=== PATIENT | female | born 1995 | race Caucasian/White ===

== ENCOUNTER 2023-02-05 20:29 | Emergency (ER) | payer OTHER ==
[2023-02-05] MEDS ORDERED: Sodium Chloride 0.9% 1000 ML 1,000 ML IV STA (20:40)
[2023-02-05] MEDS ORDERED: PROTONIX 40 MG IV IV ONE ×2 (20:40→21:34)
[2023-02-05] MEDS ORDERED: Zofran 4 MG/2 ML VIAL IV ONE (20:40)
[2023-02-05] MEDS ORDERED: SUBLIMAZE 100 MCG/2 ML IV ONE (20:49)
[2023-02-05 21:04] LABS: BASOPHIL % 0.4 % (0.0-0.4); Basophil (Absolute #) 0.04 x10^3/uL (0-0.4); Eosinophil % 1.1 % (0.00-5.0); Eosinophil (Absolute #) 0.11 x10^3/uL (0-0.5); Hematocrit 40.4 % (35-47); Hemoglobin 13.2 g/dL (12.0-16.0); IMMATURE GRAN # 0.03 x10^3u/L (0.00-0.03); IMMATURE GRAN % 0.3 % (0.00-0.4); Lymphocyte (Absolute #) 2.99 x10^3/uL (1.0-4.6); Mean Cell Volume 87.3 fL (78-100); Mean Corpuscular Hemoglobin 28.5 pg (26-32); Mean Corpuscular Hgb Concent. 32.7 g/dL (32-36); Mean Platelet Volume 8.7 fL (7.5-11.0); Monocyte (Absolute #) 0.69 x10^3/uL (0.0-1.3); Monocytes % 6.9 % (0.0-12.0); Neutrophil % 61.3 % (36.0-66.0); Platelet Count 346 x10^3/uL (150-450); Red Blood Count 4.63 x10^6/uL (4.1-5.4); Red Cell Distribution Width 11.9 % (11.5-14.0)
[2023-02-05 21:06] VITALS: RESP 18; TEMP 98.2
[2023-02-05 21:16] LABS: ALBUMIN 4.5 g/dL (3.5-5.0); ANION GAP 16.7 MEQ/L (5-15); BILIRUBIN,TOTAL 0.5 mg/dL (0.2-1.3); Calcium 9.8 mg/dL (8.4-10.2); Creatinine 1 0.81 mg/dL (0.52-1.04); PROTIME 10.9 SECONDS (9.4-12.5); Potassium 3.8 mmol/L (3.5-5.1); Total Protein 8.3 g/dL (6.3-8.2)
[2023-02-05] MEDS ORDERED: Sodium Chloride 0.9% 1000 ML 1,000 ML ONE (21:34)
[2023-02-05] MEDS ORDERED: Zofran 4 MG/2 ML VIAL ONE (21:34)
[2023-02-05] MEDS ORDERED: SUBLIMAZE 100 MCG/2 ML ONE (21:34)
--- NOTE | 2023-02-05 21:49 | ERPHSYRPT ---
- History of Present Illness Time Seen by Provider: 02/05/23 20:35 Historian: patient, family Exam Limitations: no limitations Patient Subjective Stated Complaint: pt states she has been having stomach pain since the middle of January. Triage Nursing Assessment: pt ambulated into the er; pt is holding left upper abdomen; c/o abd pain; hypoactive bowel sounds in all quads; c/o N/V; pt denies diarrhea; mucus membranes pink and moist; tachycardic; skin PDW; no respiratory distress present Physician History: Patient is a 27-year-old white female who presents with a complaint of abdominal pain which started approximately a month ago. Over the past week she has been especially ill with pain she cannot eat without vomiting and she has left upper quadrant pain. 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 She states that her fallopian tubes were removed. Timing/Duration: week(s) (4) Activities at Onset: none Quality: cramping Abdominal Pain Onset Location: [facility] Pain Radiation: [facility] Severity of Pain-Max: moderate Severity of Pain-Current: moderate Modifying Factors: Improves With: eating, vomiting Allergies/Adverse Reactions: hydrocodone Adverse Reaction (Verified 02/05/23 20:44) Headache lorazepam [From Ativan] Adverse Reaction (Verified 02/05/23 22:01) nightmares Home Medications: Buspirone HCl 15 mg PO TID 02/05/23 [History] Fluoxetine HCl 10 mg [Prozac 10 mg] 20 mg PO DAILY 02/05/23 [History] lamoTRIgine [Lamotrigine] 350 mg PO HS 02/05/23 [History] Hx Tetanus, Diphtheria Vaccination/Date Given: Yes Hx Influenza Vaccination/Date Given: No Hx Pneumococcal Vaccination/Date Given: No Travel Risk - International Travel Have you traveled outside of the country in past 3 weeks: No - Coronavirus Screening Are you exhibiting any of the following symptoms?: No Close contact with a COVID-19 positive Pt in past 14-21 Days: No - Vaccine Status Have you recieved a Covid-19 vaccination: Yes Dater Assembler: Moderna - Vaccination Dates Date of 2cond Vaccination (if applicable): 2020 - Review of Systems Constitutional: No Fever, No Chills Eyes: No Symptoms Ears, Nose, & Throat: No Symptoms Respiratory: No Cough, No Dyspnea Cardiac: No Chest Pain, No Edema, No Syncope Abdominal/Gastrointestinal: Abdominal Pain (Left upper quadrant), Nausea, Vomiting, Constipation, No Diarrhea Genitourinary Symptoms: No Dysuria Musculoskeletal: No Back Pain, No Neck Pain Skin: No Rash Neurological: No Dizziness, No Focal Weakness, No Sensory Changes Psychological: No Symptoms Endocrine: No Symptoms All Other Systems: Reviewed and Negative - Past Medical History Pertinent Past Medical History: Yes Neurological History: Seizures ENT History: No Pertinent History Cardiac History: No Pertinent History Respiratory History: No Pertinent History Endocrine Medical History: No Pertinent History Musculoskeletal History: No Pertinent History GI Medical History: No Pertinent History History: No Pertinent History Psycho-Social History: Anxiety, Attention Deficit Disorder, Bipolar, Depression Female Reproductive Disorders: No Pertinent History - Past Surgical History Past Surgical History: Yes Female Surgical History: Other Other Surgical History: removal of both tubes - Social History Smoking Status: Never smoker Exposure to second hand smoke: Yes Drug Use: marijuana Patient Lives Alone: No - Female History Hx Now: No - Nursing Vital Signs Nursing Vital Signs: Initial Vital Signs Temperature 98.2 F 02/05/23 20:30 Pulse Rate 127 H 02/05/23 20:30 Respiratory Rate 18 02/05/23 20:30 Blood Pressure 147/86 02/05/23 20:30 O2 Sat by Pulse Oximetry 97 02/05/23 20:30 Pain Scale Pain Intensity 5 - Physical Exam General Appearance: mild distress, alert Eye Exam: PERRL/EOMI, eyes nml inspection Ears, Nose, Throat Exam: normal ENT inspection, pharynx normal, moist mucous membranes Neck Exam: normal inspection, non-tender, supple, full range of motion Respiratory Exam: normal breath sounds, lungs clear, No respiratory distress Cardiovascular Exam: regular rate/rhythm, normal heart sounds Gastrointestinal/Abdomen Exam: soft, No tenderness, No mass Back Exam: normal inspection, normal range of motion, No CVA tenderness, No vertebral tenderness Extremity Exam: normal inspection, normal range of motion, pelvis stable Neurologic Exam: alert, oriented x 3, cooperative, normal mood/affect, nml cerebellar function, sensation nml, No motor deficits Skin Exam: normal color, warm, dry SpO2 Interpretation: normal SpO2: 97 O2 Delivery: Room Air - Course Nursing assessment & vital signs reviewed: Yes - CT Exams Abdomen/Pelvis CT Interpretation: Tele-radiologist Report Ordered Tests: Active Orders 24 hr Category Date Time Status IV Insertion STAT Care 02/05/23 20:40 Active ABDOMEN AND PELVIS W CONTRAST [CT] Stat Exams 02/05/23 20:41 Completed CHEST 1 VIEW (PORTABLE) Stat Exams 02/05/23 20:41 Completed AMYLASE Stat Lab 02/05/23 20:40 Completed CBC W DIFF Stat Lab 02/05/23 21:00 Completed CMP Stat Lab 02/05/23 20:40 Completed LIPASE Stat Lab 02/05/23 20:40 Completed Lactic Acid Stat Lab 02/05/23 20:57 Completed PROTIME WITH INR Stat Lab 02/05/23 20:40 Completed Medication Summary Discontinued Medications Generic Name Dose Route Start Last Admin Trade Name Freq PRN Reason Stop Dose Admin Diazepam Confirm 02/05/23 22:00 Diazepam 10 Mg/2 Ml Disp.Syringe Administered 02/05/23 22:01 Dose 10 mg .ROUTE .STK-MED ONE Diazepam 5 mg 02/05/23 22:03 02/05/23 22:07 Diazepam 10 Mg/2 Ml Disp.Syringe IV 02/05/23 22:04 5 mg STAT ONE Administration Fentanyl Citrate 75 mcg 02/05/23 20:49 02/05/23 21:41 Fentanyl Citrate 100 Mcg/2 Ml* Vial IV 02/05/23 20:50 75 mcg STAT ONE Administration Fentanyl Citrate Confirm 02/05/23 21:34 Fentanyl Citrate 100 Mcg/2 Ml* Vial Administered 02/05/23 21:35 Dose 100 mcg .ROUTE .STK-MED ONE Sodium Chloride 1,000 mls @ 999 mls/hr 02/05/23 20:40 02/05/23 21:37 Sodium Chloride 0.9% 1000 Ml IV 02/05/23 21:40 999 mls/hr .Q1H1M STA Administration Sodium Chloride Confirm 02/05/23 21:34 Sodium Chloride 0.9% 1000 Ml Administered 02/05/23 21:35 Dose 1,000 mls @ ud .ROUTE .STK-MED ONE Lorazepam Confirm 02/05/23 21:52 Lorazepam 2 Mg/1 Ml 2 Mg Vial Administered 02/05/23 21:53 Dose 2 mg .ROUTE .STK-MED ONE Ondansetron HCl 4 mg 02/05/23 20:40 02/05/23 21:38 Ondansetron Hcl 4 Mg/2 Ml Vial IV 02/05/23 20:41 4 mg STAT ONE Administration Ondansetron HCl Confirm 02/05/23 21:34 Ondansetron Hcl 4 Mg/2 Ml Vial Administered 02/05/23 21:35 Dose 4 mg .ROUTE .STK-MED ONE Pantoprazole Sodium 40 mg 02/05/23 20:40 02/05/23 21:40 Pantoprazole 40 Mg Vial IV 02/05/23 20:41 40 mg STAT ONE Administration Pantoprazole Sodium Confirm 02/05/23 21:34 Pantoprazole 40 Mg Vial Administered 02/05/23 21:35 Dose 40 mg IV .STK-MED ONE Lab/Rad Data: Laboratory Result Diagrams 02/05/23 21:00 02/05/23 20:40 Laboratory Results 02/05/23 02/05/23 02/05/23 Range/Units 21:00 20:57 20:40 WBC 10.0 (4.0-10.5) x10^3/uL RBC 4.63 (4.1-5.4) x10^6/uL Hgb 13.2 (12.0-16.0) g/dL Hct 40.4 (35-47) % MCV 87.3 (78-100) fL MCH 28.5 (26-32) pg MCHC 32.7 (32-36) g/dL RDW 11.9 (11.5-14.0) % Plt Count 346 (150-450) x10^3/uL MPV 8.7 (7.5-11.0) fL Gran % 61.3 (36.0-66.0) % Immature Gran % (Auto) 0.3 (0.00-0.4) % Nucleat RBC Rel Count 0.0 (0.00-0.1) % Eos # (Auto) 0.11 (0-0.5) x10^3/uL Immature Gran # (Auto) 0.03 (0.00-0.03) x10^3u/L Absolute Lymphs (auto) 2.99 (1.0-4.6) x10^3/uL Absolute Monos (auto) 0.69 (0.0-1.3) x10^3/uL Absolute Nucleated RBC 0.00 (0.00-0.01) x10^3u/L Lymphocytes % 30.0 (24.0-44.0) % Monocytes % 6.9 (0.0-12.0) % Eosinophils % 1.1 (0.00-5.0) % Basophils % 0.4 (0.0-0.4) % Absolute Granulocytes 6.10 (1.4-6.9) x10^3/uL Basophils # 0.04 (0-0.4) x10^3/uL PT 10.9 (9.4-12.5) SECONDS INR 1.00 (0.8-3.0) Sodium (137-145) mmol/L Potassium (3.5-5.1) mmol/L Chloride (98-107) mmol/L Carbon Dioxide (22-30) mmol/L Anion Gap (5-15) MEQ/L BUN (7-17) mg/dL Creatinine (0.52-1.04) mg/dL Estimated GFR ML/MIN Glucose (74-106) mg/dL Lactic Acid 1.5 (0.4-2.0) Calcium (8.4-10.2) mg/dL Total Bilirubin (0.2-1.3) mg/dL AST (14-36) U/L ALT (0-35) U/L Alkaline Phosphatase (38-126) U/L Serum Total Protein (6.3-8.2) g/dL Albumin (3.5-5.0) g/dL Amylase (30-110) U/L Lipase (23-300) U/L 02/05/23 Range/Units 20:40 WBC (4.0-10.5) x10^3/uL RBC (4.1-5.4) x10^6/uL Hgb (12.0-16.0) g/dL Hct (35-47) % MCV (78-100) fL MCH (26-32) pg MCHC (32-36) g/dL RDW (11.5-14.0) % Plt Count (150-450) x10^3/uL MPV (7.5-11.0) fL Gran % (36.0-66.0) % Immature Gran % (Auto) (0.00-0.4) % Nucleat RBC Rel Count (0.00-0.1) % Eos # (Auto) (0-0.5) x10^3/uL Immature Gran # (Auto) (0.00-0.03) x10^3u/L Absolute Lymphs (auto) (1.0-4.6) x10^3/uL Absolute Monos (auto) (0.0-1.3) x10^3/uL Absolute Nucleated RBC (0.00-0.01) x10^3u/L Lymphocytes % (24.0-44.0) % Monocytes % (0.0-12.0) % Eosinophils % (0.00-5.0) % Basophils % (0.0-0.4) % Absolute Granulocytes (1.4-6.9) x10^3/uL Basophils # (0-0.4) x10^3/uL PT (9.4-12.5) SECONDS INR (0.8-3.0) Sodium 137 (137-145) mmol/L Potassium 3.8 (3.5-5.1) mmol/L Chloride 102 (98-107) mmol/L Carbon Dioxide 22 (22-30) mmol/L Anion Gap 16.7 H (5-15) MEQ/L BUN 8 (7-17) mg/dL Creatinine 0.81 (0.52-1.04) mg/dL Estimated GFR 102.0 ML/MIN Glucose 118 H (74-106) mg/dL Lactic Acid (0.4-2.0) Calcium 9.8 (8.4-10.2) mg/dL Total Bilirubin 0.50 (0.2-1.3) mg/dL AST 30 (14-36) U/L ALT 20 (0-35) U/L Alkaline Phosphatase 95 (38-126) U/L Serum Total Protein 8.3 H (6.3-8.2) g/dL Albumin 4.5 (3.5-5.0) g/dL Amylase 79 (30-110) U/L Lipase 41 (23-300) U/L - Progress Progress: improved Medical Desision Making - Independent Historian Additional History obtained from: Family - Diagnostic Testing Diagnostic test were ordered, analyzed, and reviewed by me: Yes Radiological Interpretation: Reviewed by me - Risk of complications Minimal Risk: Minimal risk of morbidity - Departure Departure Disposition: Home Clinical Impression: Abdominal pain Condition: Stable Critical Care Time: No Referrals: DOCTOR,NO FAMILY [Primary Care Provider] - Follow up/PCP as directed Instructions: Irritable Bowel Syndrome (DC) Prescriptions: Ondansetron ODT 4 MG [Zofran Odt 4 mg] 4 mg PO Q6H PRN PRN #10 tablet PRN Reason: Vomiting Dicyclomine HCl 20 mg [Bentyl 20 mg] 20 mg PO ACHS 10 Days #40 tablet
[2023-02-05] MEDS ORDERED: Ativan 2 MG/1 ML VIAL ONE (21:52)
[2023-02-05] MEDS ORDERED: VALIUM 10 MG/2 ML SYRINGE ONE (22:00)
[2023-02-05] MEDS ORDERED: VALIUM 10 MG/2 ML SYRINGE IV ONE (22:03)
--- NOTE | 2023-02-05 22:03 | XRAY ---
CLINICAL HISTORY:pain COMPARISON:None. TECHNIQUE:A CT scan of the abdomen and pelvis was performed with IV contrast. Coronal and sagittal reconstructive images were also obtained. FINDINGS: Sections of the lower thorax show no significant abnormality. Abdomen: The liver is of average size. No focal or diffuse parenchymal abnormality. The portal vein, intrahepatic biliary radicals, and the bile ducts are normal. The spleen shows multiple tiny calcific foci in its parenchyma. The pancreas and adrenal glands are unremarkable. The kidneys are unremarkable. They are normal in size and shape. No calculi or hydronephrosis. The gallbladder is distended. There is no evidence of wall thickening/ pericholecystic collection. The ascending colon, the transverse colon, the descending colon, visualized small bowel loops are unremarkable. The appendix appears normal. There is no evidence of significant enlargement of the mesenteric or retroperitoneal lymph nodes. Pelvis: The urinary bladder is unremarkable. The rectosigmoid colon is unremarkable. The uterus appears unremarkable. Corpus luteal cyst seen on the right side. Minimal free fluid seen in the pelvis. No evidence of pelvic lymphadenopathy. No definite bony abnormalities could be depicted. IMPRESSION: 1. No significant acute abnormality was detected in the abdomen and pelvis. 2. Minimal free fluid in the pelvis. 3. Na acute intraabdominal abnormality. Electronically Signed by: Sheryl Mena MD. (02/05/2023 21:01:33 CASH ON DELIVERY CLERK)
--- NOTE | 2023-02-05 22:13 | XRAY ---
Indication: Pain. Comparison: None Portable chest demonstrates button overlying trachea presumed external. Remaining heart, lungs, and bony thorax normal.
[2023-02-05] MEDS ORDERED: ZOFRAN ODT 4 MG PO ONE (22:37)
[2023-02-05] MEDS ORDERED: BENTYL 20 MG PO STA (22:38)
[2023-02-05] MEDS ORDERED: ZOFRAN ODT 4 MG ONE (22:45)
[2023-02-05] MEDS ORDERED: BENTYL 20 MG ONE (22:46)
[2023-02-05 22:57] VITALS: BP 109/70; PULSE 71; O2SAT 99
== END 2023-02-05 23:03 | disposition home or self-care (01) ==
LOC: ED 20:29
DX: R10.12 Left upper quadrant pain (principal); R11.10 Vomiting, unspecified; Z79.899 Other long term (current) drug therapy
CPT/HCPCS: 36000; 36415; 71045; 74177; 80053; 82150; 83605; 83690; 85025; 85610; 96360; 96374; 96375; 99284; J2060; J2405; J3010; J3360; Q0162; A9270-GY

== ENCOUNTER 2023-05-24 14:21 | Emergency (ER) | payer OTHER ==
--- NOTE | 2023-05-24 14:26 | ERPHSYRPT ---
- History of Present Illness Time Seen by Provider: 05/24/23 14:26 Source: patient, family Exam Limitations: no limitations Physician History: This is a 27-year-old white female patient who wants to be referred to as "they", "him" or the name Ilia and is a patient of Dr. Grant who presents to the emergency room secondary to suicidal thoughts. Patient admits to having suicidal thoughts constantly. It has been several years since she attempted suicide. Patient was seen at her primary care provider's office earlier today for abdominal issues and filled out their typical admit questionnaire. There were several positive suicidal ideation portions marked. Patient was sent to [facility]. The physician was unable to evaluate this patient and therefore they told the patient to come to the emergency department. Patient has a plan and that is to take an overdose of sleeping pills. Patient does have a history of depression. Timing/Duration: today Severity of Symptoms-Max: moderate Severity of Symptoms-Current: mild (Moderate) Context related to: other (Nothing specific. Patient always feels this way) Suicidal thoughts: specific plan (Overdose of sleeping pills) Associated Symptoms: depressed, suicidal ideation Previous symptoms: same symptoms as today, no recent treatment Allergies/Adverse Reactions: hydrocodone Adverse Reaction (Verified 05/24/23 14:35) Headache lorazepam [From Ativan] Adverse Reaction (Verified 05/24/23 14:35) nightmares Home Medications: Buspirone HCl 15 mg PO TID 02/05/23 [History] Fluoxetine HCl 10 mg [Prozac 10 mg] 40 mg PO DAILY 02/05/23 [History] lamoTRIgine [Lamotrigine] 350 mg PO HS 02/05/23 [History] Dicyclomine HCl 20 mg [Bentyl 20 mg] 20 mg PO ACHS PRN 05/24/23 [History] Hx Tetanus, Diphtheria Vaccination/Date Given: Yes Hx Influenza Vaccination/Date Given: No Hx Pneumococcal Vaccination/Date Given: No Travel Risk - International Travel Have you traveled outside of the country in past 3 weeks: No - Coronavirus Screening Are you exhibiting any of the following symptoms?: No - Vaccine Status Have you recieved a Covid-19 vaccination: Yes Audio Director: Moderna - Vaccination Dates Date of 2cond Vaccination (if applicable): 2020 - Past Medical History Pertinent Past Medical History: Yes Neurological History: Seizures ENT History: No Pertinent History Cardiac History: No Pertinent History Respiratory History: No Pertinent History Endocrine Medical History: No Pertinent History Musculoskeletal History: No Pertinent History GI Medical History: No Pertinent History History: No Pertinent History Psycho-Social History: Anxiety, Attention Deficit Disorder, Bipolar, Depression Female Reproductive Disorders: No Pertinent History - Past Surgical History Past Surgical History: Yes Female Surgical History: Other Other Surgical History: removal of both tubes - Social History Smoking Status: Never smoker Exposure to second hand smoke: Yes Drug Use: marijuana Patient Lives Alone: No - Review of Systems Constitutional: No Symptoms Eyes: No Symptoms Ears, Nose, & Throat: No Symptoms Respiratory: No Symptoms Cardiac: No Symptoms Abdominal/Gastrointestinal: No Symptoms Genitourinary Symptoms: No Symptoms Musculoskeletal: No Symptoms Skin: No Symptoms Neurological: No Symptoms Psychological: Suicidal Ideations Endocrine: No Symptoms Hematologic/Lymphatic: No Symptoms Immunological/Allergic: No Symptoms All Other Systems: Reviewed and Negative - Nursing Vital Signs Nursing Vital Signs: Initial Vital Signs Temperature 96.8 F 05/24/23 14:47 Pulse Rate 81 05/24/23 14:47 Respiratory Rate 18 05/24/23 14:47 Blood Pressure 110/76 05/24/23 14:47 O2 Sat by Pulse Oximetry 97 05/24/23 14:47 Pain Scale Pain Intensity 0 - Physical Exam General Appearance: no apparent distress, alert, other (Depressed affect) Eyes, Ears, Nose, Throat Exam: normal ENT inspection, moist mucous membranes Neck Exam: normal inspection, non-tender, supple, full range of motion Respiratory Exam: normal breath sounds, lungs clear, airway intact, No chest tenderness, No respiratory distress Cardiovascular Exam: regular rate/rhythm, normal heart sounds, normal peripheral pulses Gastrointestinal/Abdominal Exam: soft, normal bowel sounds, No tenderness Extremities Exam: normal inspection, normal range of motion Current Suicidality: has suicide plan Neurological Exam: alert, calm, icebox man II-XII nml as tested, oriented x 3, depressed affect Appearance: appropriate appearance, appropriate insight Behavior/Eye Contact/Speech: alert & cooperative Thoughts/Hallucinations: normal thought pattern, no apparent hallucination Skin Exam: normal color, warm, dry SpO2 Interpretation: normal O2 Delivery: Room Air - Course Nursing assessment & vital signs reviewed: Yes EKG Interpreted by Me: RATE, Sinus Rhythm, NORMAL AXIS, NORMAL INTERVALS, NORMAL QRS, NORMAL ST-T, Other (No acute ischemic changes on today's twelve-lead EKG. I disagree with the computer read) Ordered Tests: Active Orders 24 hr Category Date Time Status Customer Equipment Engineer STAT Care 05/24/23 14:26 Active EKG-ER Only STAT Care 05/24/23 14:26 Active Tele-Health Consult ROUTINE Cons 05/24/23 18:33 Active ACETAMINOPHEN Stat Lab 05/24/23 14:40 Completed CBC W DIFF Stat Lab 05/24/23 14:40 Completed CMP Stat Lab 05/24/23 14:40 Completed ETHYL ALCOHOL Stat Lab 05/24/23 14:40 Completed HCG QUALITATIVE, SERUM Stat Lab 05/24/23 14:40 Completed SALICYLATE Stat Lab 05/24/23 14:40 Completed UA W/RFX UR CULTURE Stat Lab 05/24/23 15:33 Completed Urine Triage Profile Stat Lab 05/24/23 15:33 Completed Lab/Rad Data: Laboratory Result Diagrams 05/24/23 14:40 05/24/23 14:40 Laboratory Results 05/24/23 05/24/23 05/24/23 Range/Units 15:33 15:33 14:40 WBC (4.0-10.5) x10^3/uL RBC (4.1-5.4) x10^6/uL Hgb (12.0-16.0) g/dL Hct (35-47) % MCV (78-100) fL MCH (26-32) pg MCHC (32-36) g/dL RDW (11.5-14.0) % Plt Count (150-450) x10^3/uL MPV (7.5-11.0) fL Gran % (36.0-66.0) % Immature Gran % (Auto) (0.00-0.4) % Nucleat RBC Rel Count (0.00-0.1) % Eos # (Auto) (0-0.5) x10^3/uL Immature Gran # (Auto) (0.00-0.03) x10^3u/L Absolute Lymphs (auto) (1.0-4.6) x10^3/uL Absolute Monos (auto) (0.0-1.3) x10^3/uL Absolute Nucleated RBC (0.00-0.01) x10^3u/L Lymphocytes % (24.0-44.0) % Monocytes % (0.0-12.0) % Eosinophils % (0.00-5.0) % Basophils % (0.0-0.4) % Absolute Granulocytes (1.4-6.9) x10^3/uL Basophils # (0-0.4) x10^3/uL Sodium (137-145) mmol/L Potassium (3.5-5.1) mmol/L Chloride (98-107) mmol/L Carbon Dioxide (22-30) mmol/L Anion Gap (5-15) MEQ/L BUN (7-17) mg/dL Creatinine (0.52-1.04) mg/dL Estimated GFR ML/MIN Glucose (74-106) mg/dL Calcium (8.4-10.2) mg/dL Total Bilirubin (0.2-1.3) mg/dL AST (14-36) U/L ALT (0-35) U/L Alkaline Phosphatase (38-126) U/L Serum Total Protein (6.3-8.2) g/dL Albumin (3.5-5.0) g/dL Serum HCG, Qual NEGATIVE (NEGATIVE) Urine Color Yellow (Yellow) Urine Appearance Clear (Clear) Urine pH 8.5 A (4.6-8.0) Ur Specific [place] 1.010 (1.005-1.030) Urine Protein Negative (Negative) Urine Glucose (UA) Negative (Negative) mg/dL Urine Ketones Negative (Negative) Urine Blood Negative (Negative) Urine Nitrite Negative (Negative) Urine Bilirubin Negative (Negative) Urine Urobilinogen 0.2 (0.2) mg/dL Ur Leukocyte Esterase Negative (Negative) U Hyaline Cast (Auto) NONE SEEN (0-2) /LPF Urine Microscopic RBC 0-2 (0-5) /HPF Urine Microscopic WBC 0-2 (0-5) /HPF Ur Epithelial Cells Rare (None Seen) /HPF Urine Bacteria None Seen (None Seen) /HPF Urine Culture Reflexed NO (NO) Salicylates (2-20) mg/dL Urine Opiates Level NEGATIVE (NEGATIVE) Ur Methadone NEGATIVE (NEGATIVE) Acetaminophen (10-30) ug/ml Urine Barbiturates NEGATIVE (NEGATIVE) Ur Phencyclidine (PCP) NEGATIVE (NEGATIVE) Urine Amphetamine NEGATIVE (NEGATIVE) U Benzodiazepine Level NEGATIVE (NEGATIVE) Urine Cocaine NEGATIVE (NEGATIVE) Urine Marijuana (THC) POSITIVE A (NEGATIVE) Ethyl Alcohol (0-10) mg/dL 05/24/23 05/24/23 Range/Units 14:40 14:40 WBC 7.7 (4.0-10.5) x10^3/uL RBC 4.55 (4.1-5.4) x10^6/uL Hgb 13.1 (12.0-16.0) g/dL Hct 39.9 (35-47) % MCV 87.7 (78-100) fL MCH 28.8 (26-32) pg MCHC 32.8 (32-36) g/dL RDW 12.4 (11.5-14.0) % Plt Count 317 (150-450) x10^3/uL MPV 8.8 (7.5-11.0) fL Gran % 65.7 (36.0-66.0) % Immature Gran % (Auto) 0.3 (0.00-0.4) % Nucleat RBC Rel Count 0.0 (0.00-0.1) % Eos # (Auto) 0.05 (0-0.5) x10^3/uL Immature Gran # (Auto) 0.02 (0.00-0.03) x10^3u/L Absolute Lymphs (auto) 2.02 (1.0-4.6) x10^3/uL Absolute Monos (auto) 0.50 (0.0-1.3) x10^3/uL Absolute Nucleated RBC 0.00 (0.00-0.01) x10^3u/L Lymphocytes % 26.4 (24.0-44.0) % Monocytes % 6.5 (0.0-12.0) % Eosinophils % 0.7 (0.00-5.0) % Basophils % 0.4 (0.0-0.4) % Absolute Granulocytes 5.04 (1.4-6.9) x10^3/uL Basophils # 0.03 (0-0.4) x10^3/uL Sodium 138 (137-145) mmol/L Potassium 3.7 (3.5-5.1) mmol/L Chloride 104 (98-107) mmol/L Carbon Dioxide 25 (22-30) mmol/L Anion Gap 12.9 (5-15) MEQ/L BUN 6 L (7-17) mg/dL Creatinine 0.70 (0.52-1.04) mg/dL Estimated GFR 121.5 ML/MIN Glucose 96 (74-106) mg/dL Calcium 10.1 (8.4-10.2) mg/dL Total Bilirubin 0.50 (0.2-1.3) mg/dL AST 24 (14-36) U/L ALT 21 (0-35) U/L Alkaline Phosphatase 89 (38-126) U/L Serum Total Protein 8.2 (6.3-8.2) g/dL Albumin 4.7 (3.5-5.0) g/dL Serum HCG, Qual (NEGATIVE) Urine Color (Yellow) Urine Appearance (Clear) Urine pH (4.6-8.0) Ur Specific [place] (1.005-1.030) Urine Protein (Negative) Urine Glucose (UA) (Negative) mg/dL Urine Ketones (Negative) Urine Blood (Negative) Urine Nitrite (Negative) Urine Bilirubin (Negative) Urine Urobilinogen (0.2) mg/dL Ur Leukocyte Esterase (Negative) U Hyaline Cast (Auto) (0-2) /LPF Urine Microscopic RBC (0-5) /HPF Urine Microscopic WBC (0-5) /HPF Ur Epithelial Cells (None Seen) /HPF Urine Bacteria (None Seen) /HPF Urine Culture Reflexed (NO) Salicylates < 1.0 L (2-20) mg/dL Urine Opiates Level (NEGATIVE) Ur Methadone (NEGATIVE) Acetaminophen < 10 L (10-30) ug/ml Urine Barbiturates (NEGATIVE) Ur Phencyclidine (PCP) (NEGATIVE) Urine Amphetamine (NEGATIVE) U Benzodiazepine Level (NEGATIVE) Urine Cocaine (NEGATIVE) Urine Marijuana (THC) (NEGATIVE) Ethyl Alcohol < 10 (0-10) mg/dL - Progress Progress: unchanged Progress Note: 05/24/23 15:47 This patient's medical issue is 1 of high complexity. The level of complexity in the workup performed is based on review of the patient's past medical history, review of the patient's medication list, review of the patient's drug allergy list, history of present illness and physical findings on examination. The workup includes twelve-lead EKG, test, urinalysis, urine drug triage, CBC, CMP, salicylate level, acetaminophen level, alcohol level. 05/24/23 18:21 I interpreted the twelve-lead EKG as well as laboratory test results. There are no acute, emergent medical issues at this time. I was informed by nursing staff that the patient will be released to home with a safety plan in place. I am awaiting that report before commenting on the patient's clinical impression and closing out the chart. 05/24/23 19:04 This patient's case was staffed with [facility] psychiatrist Dr. Gregorio. Recommendation outpatient follow-up with safety plan in place. Counseled pt/family regarding: lab results, diagnosis, need for follow-up Medical Desision Making - Independent Historian Additional History obtained from: Family - Diagnostic Testing Diagnostic test were ordered, analyzed, and reviewed by me: Yes - Risk of complications Minimal Risk: Minimal risk of morbidity - Departure Departure Disposition: Home Clinical Impression: Bipolar disorder, current episode depressed, moderate Condition: Stable Critical Care Time: No Referrals: MICHAEL GRANT DO [Primary Care Provider] - Follow up/PCP as directed Additional Instructions: Continue all your medications as prescribed. Follow-up as an outpatient per your safety plan. Follow your safety plan. Avoid illicit, illegal drug use.
[2023-05-24 14:43] LABS: Absolute Neutrophil Ct (ANC) 5.04 x10^3/uL (1.4-6.9); BASOPHIL % 0.4 % (0.0-0.4); Basophil (Absolute #) 0.03 x10^3/uL (0-0.4); Eosinophil % 0.7 % (0.00-5.0); Eosinophil (Absolute #) 0.05 x10^3/uL (0-0.5); Hematocrit 39.9 % (35-47); Hemoglobin 13.1 g/dL (12.0-16.0); IMMATURE GRAN # 0.02 x10^3u/L (0.00-0.03); IMMATURE GRAN % 0.3 % (0.00-0.4); Lymphocyte (Absolute #) 2.02 x10^3/uL (1.0-4.6); Lymphocytes % 26.4 % (24.0-44.0); Mean Cell Volume 87.7 fL (78-100); Mean Corpuscular Hemoglobin 28.8 pg (26-32); Mean Corpuscular Hgb Concent. 32.8 g/dL (32-36); Mean Platelet Volume 8.8 fL (7.5-11.0); Monocytes % 6.5 % (0.0-12.0); Neutrophil % 65.7 % (36.0-66.0); Platelet Count 317 x10^3/uL (150-450); Red Blood Count 4.55 x10^6/uL (4.1-5.4); Red Cell Distribution Width 12.4 % (11.5-14.0); White Blood Count 7.7 x10^3/uL (4.0-10.5)
[2023-05-24 15:00] LABS: HCG SERUM TEST NEGATIVE (NEGATIVE)
[2023-05-24 15:02] LABS: ACETAMINOPHEN < 10 ug/ml (10-30); ALBUMIN 4.7 g/dL (3.5-5.0); ALKALINE PHOSPHATASE 89 U/L (38-126); ANION GAP 12.9 MEQ/L (5-15); BLOOD UREA NITROGEN 6 mg/dL (7-17); CHLORIDE 104 mmol/L (98-107); Calcium 10.1 mg/dL (8.4-10.2); Carbon Dioxide 25 mmol/L (22-30); EST GLOMERULAR FILTRATION RATE 121.5 ML/MIN; ETHYL ALCOHOL < 10 mg/dL (0-10); Glucose 96 mg/dL (74-106); Potassium 3.7 mmol/L (3.5-5.1); SALICYLATE < 1.0 mg/dL (2-20); SGOT/AST 24 U/L (14-36); SGPT/ALT 21 U/L (0-35); SODIUM 138 mmol/L (137-145); Total Protein 8.2 g/dL (6.3-8.2)
[2023-05-24 15:21] VITALS: TEMP 96.8
[2023-05-24 16:19] LABS: Appearance Clear (Clear); Bacteria None Seen /HPF (None Seen); Bilirubin Negative (Negative); Blood Negative (Negative); Epithelial Cells Rare /HPF (None Seen); Glucose, Urine Negative (Negative); Hyaline Casts NONE SEEN /LPF (0-2); Ketones Negative (Negative); Leukocyte Esterase Negative (Negative); Nitrite Negative (Negative); Ph 8.5 (4.6-8.0); Protein,Urine Dip Negative (Negative); RBC 0-2 /HPF (0-5); Urobilinogen 0.2 mg/dL (0.2); WBC 0-2 /HPF (0-5)
[2023-05-24 16:21] LABS: ADD URINE CULTURE? NO (NO)
[2023-05-24 16:36] LABS: Amphetamine,Urine NEGATIVE (NEGATIVE); Barbiturate,Urine NEGATIVE (NEGATIVE); Benzodiazepine,Urine NEGATIVE (NEGATIVE); Cocaine,Urine NEGATIVE (NEGATIVE); Methadone,Urine NEGATIVE (NEGATIVE); Opiate,Urine NEGATIVE (NEGATIVE); PCP,Urine NEGATIVE (NEGATIVE); THC,Urine POSITIVE (NEGATIVE)
[2023-05-24 19:18] VITALS: BP 104/73; PULSE 68; RESP 20; O2SAT 98
== END 2023-05-24 19:25 | disposition home or self-care (01) ==
LOC: ED 14:21
DX: F31.32 Bipolar disorder, current episode depressed, moderate (principal); R45.851 Suicidal ideations; Z79.899 Other long term (current) drug therapy
CPT/HCPCS: 36415; 80053; 80143; 80179; 80307; 81001; 82077; 84703; 85025; 93005; 93041; 99284

== ENCOUNTER 2023-08-03 15:04 | Emergency (ER) | payer OTHER ==
[2023-08-03 15:28] LABS: Absolute Neutrophil Ct (ANC) 5.83 x10^3/uL (1.4-6.9); BASOPHIL % 0.5 % (0.0-0.4); Basophil (Absolute #) 0.04 x10^3/uL (0-0.4); Eosinophil % 0.5 % (0.00-5.0); Eosinophil (Absolute #) 0.04 x10^3/uL (0-0.5); Hematocrit 38.1 % (35-47); Hemoglobin 12.8 g/dL (12.0-16.0); IMMATURE GRAN # 0.01 x10^3u/L (0.00-0.03); IMMATURE GRAN % 0.1 % (0.00-0.4); Lymphocyte (Absolute #) 1.71 x10^3/uL (1.0-4.6); Lymphocytes % 21.2 % (24.0-44.0); Mean Cell Volume 86.4 fL (78-100); Mean Corpuscular Hgb Concent. 33.6 g/dL (32-36); Monocyte (Absolute #) 0.44 x10^3/uL (0.0-1.3); Monocytes % 5.5 % (0.0-12.0); Neutrophil % 72.2 % (36.0-66.0); Platelet Count 333 x10^3/uL (150-450); Red Blood Count 4.41 x10^6/uL (4.1-5.4); Red Cell Distribution Width 12.3 % (11.5-14.0); White Blood Count 8.1 x10^3/uL (4.0-10.5)
[2023-08-03 15:31] VITALS: RESP 18; TEMP 97.4
[2023-08-03 15:33] VITALS: O2SAT 98
[2023-08-03 15:44] LABS: ACETAMINOPHEN < 10 ug/ml (10-30); ALBUMIN 4.3 g/dL (3.5-5.0); ALKALINE PHOSPHATASE 82 U/L (38-126); ANION GAP 17.5 MEQ/L (5-15); BLOOD UREA NITROGEN 9 mg/dL (7-17); CHLORIDE 108 mmol/L (98-107); Calcium 9.9 mg/dL (8.4-10.2); Carbon Dioxide 20 mmol/L (22-30); Creatinine 1 0.88 mg/dL (0.52-1.04); EST GLOMERULAR FILTRATION RATE 91.7 ML/MIN; ETHYL ALCOHOL < 10 mg/dL (0-10); Glucose 128 mg/dL (74-106); Potassium 3.4 mmol/L (3.5-5.1); SALICYLATE < 1.0 mg/dL (2-20); SGOT/AST 23 U/L (14-36); SGPT/ALT 21 U/L (0-35); SODIUM 141 mmol/L (135-145); Total Protein 8.1 g/dL (6.3-8.2)
[2023-08-03 16:24] LABS: HCG URINE TEST NEGATIVE (NEGATIVE)
[2023-08-03 16:28] LABS: Appearance Cloudy (Clear); Bacteria Few /HPF (None Seen); Bilirubin Negative (Negative); Blood Negative (Negative); Epithelial Cells Few /HPF (None Seen); Glucose, Urine Negative (Negative); Hyaline Casts NONE SEEN /LPF (0-2); Ketones Trace (Negative); Leukocyte Esterase Small (Negative); Nitrite Negative (Negative); Ph 6.5 (4.6-8.0); Protein,Urine Dip Trace (Negative); Specific Gravity 1.025 (1.005-1.030)
[2023-08-03 16:30] LABS: ADD URINE CULTURE? YES (NO)
[2023-08-03 16:39] LABS: Amphetamine,Urine NEGATIVE (NEGATIVE); Barbiturate,Urine NEGATIVE (NEGATIVE); Benzodiazepine,Urine NEGATIVE (NEGATIVE); Cocaine,Urine NEGATIVE (NEGATIVE); Methadone,Urine NEGATIVE (NEGATIVE); Opiate,Urine NEGATIVE (NEGATIVE); PCP,Urine NEGATIVE (NEGATIVE); THC,Urine POSITIVE (NEGATIVE)
--- NOTE | 2023-08-03 16:41 | ERPHSYRPT ---
- History of Present Illness Time Seen by Provider: 08/03/23 15:30 Source: patient Exam Limitations: no limitations Patient Subjective Stated Complaint: Medical clearance- Has a bed at [facility] Triage Nursing Assessment: Patient ambulated back to ED and transferred self to bed. Patient A+O X3. Patient's skin pink, warm and dry. Patient refers to self as They/Them pronouns. Patient states they had an appointment with [facility]patient today and it was decided for patient to be admitted for treatment so patient is just here for medical clearance. Patient states they have a bed. Patient denies pain or discomfort. Physician History: 20-year-old female presents to emergency department for evaluation as per [facility] recommendation. Patient will be admitted to [facility] for evaluation and treatment. However patient has a history of epilepsy. Patient had a seizure yesterday. Patient was advised to come to our ED for a checkup prior to [facility] admission. Patient is currently asymptomatic. She voices no other complaints or concerns at this time. Portions of this note were created with voice recognition technology. There may be grammatical, spelling, punctuation or sound alike errors Timing/Duration: yesterday Severity: moderate Modifying Factors: Improves With: nothing Associated Symptoms: denies symptoms Allergies/Adverse Reactions: hydrocodone Adverse Reaction (Verified 08/03/23 15:18) Headache lorazepam [From Ativan] Adverse Reaction (Verified 08/03/23 15:18) nightmares Home Medications: Buspirone HCl 15 mg PO TID 02/05/23 [History] Fluoxetine HCl 10 mg [Prozac 10 mg] 40 mg PO DAILY 02/05/23 [History] lamoTRIgine [Lamotrigine] 350 mg PO HS 02/05/23 [History] Dicyclomine HCl 20 mg [Bentyl 20 mg] 20 mg PO ACHS PRN 05/24/23 [History] Hx Tetanus, Diphtheria Vaccination/Date Given: Yes Hx Influenza Vaccination/Date Given: No Hx Pneumococcal Vaccination/Date Given: No Immunizations Up to Date: Yes Travel Risk - International Travel Have you traveled outside of the country in past 3 weeks: No - Emerging Infectious Disease Are you exhibiting symptoms associated with any current EIDs: No - Review of Systems Constitutional: No Symptoms, No Fever, No Chills Eyes: No Symptoms Ears, Nose, & Throat: No Symptoms Respiratory: No Symptoms, No Cough, No Dyspnea Cardiac: No Symptoms, No Chest Pain, No Edema, No Syncope Abdominal/Gastrointestinal: No Symptoms, No Abdominal Pain, No Nausea, No Vomiting, No Diarrhea Genitourinary Symptoms: No Symptoms, No Dysuria Musculoskeletal: No Symptoms, No Back Pain, No Neck Pain Skin: No Symptoms, No Rash Neurological: No Symptoms, No Dizziness, No Focal Weakness, No Sensory Changes Psychological: No Symptoms Endocrine: No Symptoms Hematologic/Lymphatic: No Symptoms Immunological/Allergic: No Symptoms All Other Systems: Reviewed and Negative - Past Medical History Pertinent Past Medical History: Yes Neurological History: Seizures ENT History: No Pertinent History Cardiac History: No Pertinent History Respiratory History: No Pertinent History Endocrine Medical History: No Pertinent History Musculoskeletal History: No Pertinent History GI Medical History: No Pertinent History History: No Pertinent History Psycho-Social History: Anxiety, Attention Deficit Disorder, Bipolar, Depression Female Reproductive Disorders: No Pertinent History - Past Surgical History Past Surgical History: Yes Female Surgical History: Other Other Surgical History: removal of both tubes - Female History Hx Last Menstrual Period: last week Hx Now: No - Social History Smoking Status: Never smoker Exposure to second hand smoke: No Drug Use: marijuana Patient Lives Alone: No - Nursing Vital Signs Nursing Vital Signs: Initial Vital Signs Temperature 97.4 F 08/03/23 15:19 Pulse Rate 84 08/03/23 15:19 Respiratory Rate 18 08/03/23 15:19 Blood Pressure 120/98 08/03/23 15:19 O2 Sat by Pulse Oximetry 96 08/03/23 15:19 Pain Scale Pain Intensity 0 - Physical Exam General Appearance: no apparent distress, alert Eye Exam: PERRL/EOMI, eyes nml inspection Ears, Nose, Throat Exam: normal ENT inspection, TMs normal, pharynx normal, moist mucous membranes Neck Exam: normal inspection, non-tender, supple, full range of motion Respiratory Exam: normal breath sounds, lungs clear, airway intact, No respiratory distress Cardiovascular Exam: regular rate/rhythm, normal heart sounds, normal peripheral pulses Gastrointestinal/Abdomen Exam: soft, normal bowel sounds, No tenderness, No mass Pelvic Exam: other (Tenderness palpation the left pelvis) Back Exam: normal inspection, normal range of motion, No CVA tenderness, No vertebral tenderness Extremity Exam: normal inspection, normal range of motion, pelvis stable Neurologic Exam: alert, oriented x 3, cooperative, normal mood/affect, nml cerebellar function, nml station & gait, sensation nml, No motor deficits Skin Exam: normal color, warm, dry, No rash Lymphatic Exam: No adenopathy SpO2 Interpretation: normal SpO2: 98 O2 Delivery: Room Air - Course Nursing assessment & vital signs reviewed: Yes Ordered Tests: Active Orders 24 hr Category Date Time Status Guest House Manager STAT Care 08/03/23 15:27 Active Clean Catch Urine Specimen STAT Care 08/03/23 15:14 Active EKG-ER Only STAT Care 08/03/23 15:26 Active Pulse Oximetry (ED) STAT Care 08/03/23 15:26 Active ACETAMINOPHEN Stat Lab 08/03/23 15:25 Completed CBC W DIFF Stat Lab 08/03/23 15:25 Completed CMP Stat Lab 08/03/23 15:25 Completed CULTURE,URINE Stat Lab 08/03/23 16:15 Received ETHYL ALCOHOL Stat Lab 08/03/23 15:25 Completed HCG QUALITATIVE, URINE Stat Lab 08/03/23 16:15 Completed SALICYLATE Stat Lab 08/03/23 15:25 Completed UA W/RFX UR CULTURE Stat Lab 08/03/23 16:15 Completed Urine Triage Profile Stat Lab 08/03/23 16:15 Received Lab/Rad Data: Laboratory Result Diagrams 08/03/23 15:25 08/03/23 15:25 Laboratory Results 08/03/23 08/03/23 08/03/23 Range/Units 16:15 16:15 15:25 WBC (4.0-10.5) x10^3/uL RBC (4.1-5.4) x10^6/uL Hgb (12.0-16.0) g/dL Hct (35-47) % MCV (78-100) fL MCH (26-32) pg MCHC (32-36) g/dL RDW (11.5-14.0) % Plt Count (150-450) x10^3/uL MPV (7.5-11.0) fL Gran % (36.0-66.0) % Immature Gran % (Auto) (0.00-0.4) % Nucleat RBC Rel Count (0.00-0.1) % Eos # (Auto) (0-0.5) x10^3/uL Immature Gran # (Auto) (0.00-0.03) x10^3u/L Absolute Lymphs (auto) (1.0-4.6) x10^3/uL Absolute Monos (auto) (0.0-1.3) x10^3/uL Absolute Nucleated RBC (0.00-0.01) x10^3u/L Lymphocytes % (24.0-44.0) % Monocytes % (0.0-12.0) % Eosinophils % (0.00-5.0) % Basophils % (0.0-0.4) % Absolute Granulocytes (1.4-6.9) x10^3/uL Basophils # (0-0.4) x10^3/uL Sodium 141 (135-145) mmol/L Potassium 3.4 L (3.5-5.1) mmol/L Chloride 108 H (98-107) mmol/L Carbon Dioxide 20 L (22-30) mmol/L Anion Gap 17.5 H (5-15) MEQ/L BUN 9 (7-17) mg/dL Creatinine 0.88 (0.52-1.04) mg/dL Estimated GFR 91.7 ML/MIN Glucose 128 H (74-106) mg/dL Calcium 9.9 (8.4-10.2) mg/dL Total Bilirubin 0.50 (0.2-1.3) mg/dL AST 23 (14-36) U/L ALT 21 (0-35) U/L Alkaline Phosphatase 82 (38-126) U/L Serum Total Protein 8.1 (6.3-8.2) g/dL Albumin 4.3 (3.5-5.0) g/dL Urine Color Yellow (Yellow) Urine Appearance Cloudy A (Clear) Urine pH 6.5 (4.6-8.0) Ur Specific [place] 1.025 (1.005-1.030) Urine Protein Trace A (Negative) Urine Glucose (UA) Negative (Negative) mg/dL Urine Ketones Trace A (Negative) Urine Blood Negative (Negative) Urine Nitrite Negative (Negative) Urine Bilirubin Negative (Negative) Urine Urobilinogen 1.0 A (0.2) mg/dL Ur Leukocyte Esterase Small A (Negative) U Hyaline Cast (Auto) NONE SEEN (0-2) /LPF Urine Microscopic RBC 3-5 (0-5) /HPF Urine Microscopic WBC 6-10 A (0-5) /HPF Ur Epithelial Cells Few (None Seen) /HPF Urine Bacteria Few A (None Seen) /HPF Urine Culture Reflexed YES (NO) Urine HCG, Qual NEGATIVE (NEGATIVE) Salicylates < 1.0 L (2-20) mg/dL Acetaminophen < 10 L (10-30) ug/ml Ethyl Alcohol < 10 (0-10) mg/dL 08/03/23 Range/Units 15:25 WBC 8.1 (4.0-10.5) x10^3/uL RBC 4.41 (4.1-5.4) x10^6/uL Hgb 12.8 (12.0-16.0) g/dL Hct 38.1 (35-47) % MCV 86.4 (78-100) fL MCH 29.0 (26-32) pg MCHC 33.6 (32-36) g/dL RDW 12.3 (11.5-14.0) % Plt Count 333 (150-450) x10^3/uL MPV 9.0 (7.5-11.0) fL Gran % 72.2 H (36.0-66.0) % Immature Gran % (Auto) 0.1 (0.00-0.4) % Nucleat RBC Rel Count 0.0 (0.00-0.1) % Eos # (Auto) 0.04 (0-0.5) x10^3/uL Immature Gran # (Auto) 0.01 (0.00-0.03) x10^3u/L Absolute Lymphs (auto) 1.71 (1.0-4.6) x10^3/uL Absolute Monos (auto) 0.44 (0.0-1.3) x10^3/uL Absolute Nucleated RBC 0.00 (0.00-0.01) x10^3u/L Lymphocytes % 21.2 L (24.0-44.0) % Monocytes % 5.5 (0.0-12.0) % Eosinophils % 0.5 (0.00-5.0) % Basophils % 0.5 (0.0-0.4) % Absolute Granulocytes 5.83 (1.4-6.9) x10^3/uL Basophils # 0.04 (0-0.4) x10^3/uL Sodium (135-145) mmol/L Potassium (3.5-5.1) mmol/L Chloride (98-107) mmol/L Carbon Dioxide (22-30) mmol/L Anion Gap (5-15) MEQ/L BUN (7-17) mg/dL Creatinine (0.52-1.04) mg/dL Estimated GFR ML/MIN Glucose (74-106) mg/dL Calcium (8.4-10.2) mg/dL Total Bilirubin (0.2-1.3) mg/dL AST (14-36) U/L ALT (0-35) U/L Alkaline Phosphatase (38-126) U/L Serum Total Protein (6.3-8.2) g/dL Albumin (3.5-5.0) g/dL Urine Color (Yellow) Urine Appearance (Clear) Urine pH (4.6-8.0) Ur Specific [place] (1.005-1.030) Urine Protein (Negative) Urine Glucose (UA) (Negative) mg/dL Urine Ketones (Negative) Urine Blood (Negative) Urine Nitrite (Negative) Urine Bilirubin (Negative) Urine Urobilinogen (0.2) mg/dL Ur Leukocyte Esterase (Negative) U Hyaline Cast (Auto) (0-2) /LPF Urine Microscopic RBC (0-5) /HPF Urine Microscopic WBC (0-5) /HPF Ur Epithelial Cells (None Seen) /HPF Urine Bacteria (None Seen) /HPF Urine Culture Reflexed (NO) Urine HCG, Qual (NEGATIVE) Salicylates (2-20) mg/dL Acetaminophen (10-30) ug/ml Ethyl Alcohol (0-10) mg/dL - Progress Progress: improved Progress Note: 20-year-old female presents to our ED for medical screening for admission to [facility]. Physical exam nonremarkable. Workup reveals a mild hypokalemia. Oral potassium replacement administered. Urinalysis reveals urinary tract infection. Patient received a dose of Macrobid in our ED. A prescription for the same forwarded to patient's pharmacy. No indication for further workup will discharge at this time. Patient is cleared for heart admission. Patient is otherwise asymptomatic. She voices no other complaints or concerns at this time. Portions of this note were created with voice recognition technology. There may be grammatical, spelling, punctuation or sound alike errors Complexity problem addressed is moderate acute complicated No critical care time Complexity of data reviewed and analyzed is moderate. Test ordered test reviewed results analyzed and correlated clinically with history and physical exam. Risk of complication and or risk of morbidity/mortality patient management is moderate. A prescription for Macrobid forwarded to patient's pharmacy. Vital stable. Time spent to discharge patient is approximately 20 minutes. Plan of care established for shared decision making. No social determinants of health present impede follow-up. Portions of this note were created with voice recognition technology. There may be grammatical, spelling, punctuation or sound alike errors 08/03/23 16:43 Counseled pt/family regarding: lab results, diagnosis, need for follow-up, rad results - Departure Departure Disposition: Home Clinical Impression: UTI (urinary tract infection), Hypokalemia Condition: Stable Critical Care Time: No Referrals: MICHAEL GRANT DO [Primary Care Provider] - Follow up/PCP as directed Additional Instructions: Discharge/Care Plan [place] [facility] was seen on 08/03/23 in the Emergency Room. The patient was counseled regarding Diagnosis,Lab results, Imaging studies, need for follow up and when to return to the Emergency Room. Prescriptions given: Discharge Note I have spoken with the patient and/or caregivers. I have explained the patient's condition, diagnosis and treatment plan based on the information available to me at this time. I have answered the patient's and/or caregiver's questions and addressed any concerns. The patient and/or caregivers have as good understanding of the patient's diagnosis, condition and treatment plan as can be expected at this point. The vital signs have been stable. The patient's condition is stable and appropriate for discharge from the emergency department. The patient will pursue further outpatient evaluation with the primary care phys ician or other designated or consulting physician as outlined in the discharge instructions. The patient and/or caregivers are agreeable to this plan of care and follow-up instructions have been explained in detail. The patient and/or caregivers have received these instruction. The patient/and or caregivers are aware that any significant change in condition or worsening of symptoms should prompt an immediate return to this or the closest emergency department or call 911. Prescriptions: Nitrofurantoin Macro 100 mg [Macrobid 100MG Capsule] 100 mg PO BID 7 Days #14 cap
[2023-08-03] MEDS ORDERED: Klor Con ONE (16:45)
[2023-08-03 16:46] VITALS: BP 111/78; PULSE 85
[2023-08-03] MEDS: Klor Con PO ONE (16:46)
[2023-08-03] MEDS: Macrobid 100MG Capsule PO ONE (16:48)
[2023-08-03] MEDS ORDERED: Macrobid 100MG Capsule ONE (16:48)
== END 2023-08-03 16:54 | disposition home or self-care (01) ==
LOC: ED 15:04
DX: N39.0 Urinary tract infection, site not specified (principal); E87.6 Hypokalemia; Z79.899 Other long term (current) drug therapy
CPT/HCPCS: 36415; 80053; 80143; 80179; 80307; 81001; 81025; 82077; 85025; 87086; 93005; 93041; 94760; 99284; A9270-GY

== ENCOUNTER 2023-10-29 19:56 | Emergency (ER) | payer OTHER ==
--- NOTE | 2023-10-29 20:12 | ERPHSYRPT ---
- History of Present Illness Time Seen by Provider: 10/29/23 20:12 Source: patient, family Exam Limitations: clinical condition Physician History: 28-year-old white female patient of Dr. Grant who has a history of pseudoseizures, bipolar disorder, anxiety issues and ADD. Patient presents to emergency room because she is worsening urinary retention symptoms and associated urinary frequency and dysuria. Patient has had urinary retention symptoms for 3 years. Patient also has a pseudoseizure disorder and while in the emergency department, had a "seizure" episode lasting a couple minutes. She states she is not concerned about the seizures. She has them all the time she is aware what is happening. She has never confused afterwards. She states that the physicians who have evaluated her for her seizures are uncertain why she has them. She does not want any workup regarding seizures. Timing/Duration: today, worse Severity: mild Associated Symptoms: denies symptoms Allergies/Adverse Reactions: hydrocodone Adverse Reaction (Verified 10/29/23 20:10) Headache lorazepam [From Ativan] Adverse Reaction (Verified 10/29/23 20:10) nightmares Home Medications: Buspirone HCl 15 mg PO TID 02/05/23 [History] Fluoxetine HCl 10 mg [Prozac 10 mg] 20 mg PO DAILY 02/05/23 [History] lamoTRIgine [Lamotrigine] 300 mg PO HS 02/05/23 [History] Dicyclomine HCl 20 mg [Bentyl 20 mg] 20 mg PO ACHS PRN 05/24/23 [History] Hx Tetanus, Diphtheria Vaccination/Date Given: Yes Hx Influenza Vaccination/Date Given: No Hx Pneumococcal Vaccination/Date Given: No Travel Risk - International Travel Have you traveled outside of the country in past 3 weeks: No - Emerging Infectious Disease Are you exhibiting symptoms associated with any current EIDs: No - Review of Systems Constitutional: No Symptoms Eyes: No Symptoms Ears, Nose, & Throat: No Symptoms Respiratory: No Symptoms Cardiac: No Symptoms Abdominal/Gastrointestinal: No Symptoms Genitourinary Symptoms: Dysuria, Frequency, Urgency, Urinary Retention Musculoskeletal: No Symptoms Skin: No Symptoms Neurological: Seizure (However, patient does not want any workup relative to her seizure that she had in the waiting room) Psychological: No Symptoms Endocrine: No Symptoms Hematologic/Lymphatic: No Symptoms Immunological/Allergic: No Symptoms All Other Systems: Reviewed and Negative - Past Medical History Pertinent Past Medical History: Yes Neurological History: Seizures ENT History: No Pertinent History Cardiac History: No Pertinent History Respiratory History: No Pertinent History Endocrine Medical History: No Pertinent History Musculoskeletal History: No Pertinent History GI Medical History: No Pertinent History History: No Pertinent History Psycho-Social History: Anxiety, Attention Deficit Disorder, Bipolar, Depression Female Reproductive Disorders: No Pertinent History - Past Surgical History Past Surgical History: Yes Female Surgical History: Other Other Surgical History: removal of both tubes - Social History Smoking Status: Never smoker Exposure to second hand smoke: No Drug Use: marijuana Patient Lives Alone: No - Social Determinants of Health Will the patient participate in the screening: Yes Do you worry about a steady place to live?: No In the past 12 months,have you had to go without utilities?: No Transportation Issues: No Has anyone in your support network made you feel unsafe?: No Have you or anyone in your house had to go without enough: No - Nursing Vital Signs Nursing Vital Signs: Initial Vital Signs Temperature 99.1 F 10/29/23 20:18 Pulse Rate 105 H 10/29/23 20:18 Respiratory Rate 20 10/29/23 20:18 Blood Pressure 156/91 10/29/23 20:18 O2 Sat by Pulse Oximetry 99 10/29/23 20:18 Pain Scale Pain Intensity 7 - Physical Exam General Appearance: no apparent distress, alert, anxiety Eye Exam: PERRL/EOMI, eyes nml inspection Ears, Nose, Throat Exam: normal ENT inspection, moist mucous membranes Neck Exam: normal inspection, non-tender, supple, full range of motion Respiratory Exam: normal breath sounds, lungs clear, airway intact, No chest tenderness, No respiratory distress Cardiovascular Exam: regular rate/rhythm, normal heart sounds, normal peripheral pulses Gastrointestinal/Abdomen Exam: soft, normal bowel sounds, No tenderness Pelvic Exam: not done Rectal Exam: not done Back Exam: normal inspection, normal range of motion, No CVA tenderness, No vertebral tenderness Extremity Exam: normal inspection, normal range of motion, pelvis stable Neurologic Exam: alert, oriented x 3, cooperative, bar waiter/waitress II-XII nml as tested, sensation nml Skin Exam: normal color, warm, dry Lymphatic Exam: No adenopathy SpO2 Interpretation: normal O2 Delivery: Room Air - Course Nursing assessment & vital signs reviewed: Yes Ordered Tests: Active Orders 24 hr Category Date Time Status IV Insertion STAT Care 10/29/23 21:05 Active Oxygen-ED Only Nasal Cannula 2 lpm Care 10/29/23 20:15 Active cath [Cath for Specimen-Straight] STAT Care 10/29/23 20:49 Active CULTURE,URINE Stat Lab 10/29/23 20:49 Received UA W/RFX UR CULTURE Stat Lab 10/29/23 20:49 Completed Medication Summary Discontinued Medications Generic Name Dose Route Start Last Admin Trade Name Brianna PRN Reason Stop Dose Admin Cephalexin HCl 500 mg 10/29/23 21:21 Cephalexin Mh500 Mg Capsule PO 10/29/23 21:22 STAT ONE Lab/Rad Data: Laboratory Results 10/29/23 Range/Units 20:49 Urine Color Yellow (Yellow) Urine Appearance Cloudy A (Clear) Urine pH 6.0 (4.6-8.0) Ur Specific [place] >=1.030 A (1.005-1.030) Urine Protein Trace A (Negative) Urine Glucose (UA) Negative (Negative) mg/dL Urine Ketones Trace A (Negative) Urine Blood Negative (Negative) Urine Nitrite Negative (Negative) Urine Bilirubin Negative (Negative) Urine Urobilinogen 1.0 A (0.2) mg/dL Ur Leukocyte Esterase Trace A (Negative) U Hyaline Cast (Auto) NONE SEEN (0-2) /LPF Urine Microscopic RBC 0-2 (0-5) /HPF Urine Microscopic WBC 3-5 (0-5) /HPF Ur Epithelial Cells Few (None Seen) /HPF Urine Bacteria Few A (None Seen) /HPF Urine Culture Reflexed ORDERED SEPARATELY (NO) - Progress Progress: improved Progress Note: 10/29/23 20:58 My medical decision making and the assignment of low complexity to this patient's medical issue today is based on review of the patient's past medical history, review of the patient's medication list, review patient drug allergy list, history present illness and physical findings on examination. The workup in this patient includes urinalysis. The patient is refusing any workup regarding her seizures. She had an episode in the waiting room. She states he has them all the time. She will sign refusal of treatment and workup for the seizures. 10/29/23 21:22 Interpreted the laboratory data results. The patient has a mild urinary tract infection. Patient is already having symptoms with evidence of at least a mild urinary tract infection. Will provide her with Keflex 500 mg orally in the emergency room and remotely send 7 more day supply to her pharmacy. Counseled pt/family regarding: lab results, diagnosis, need for follow-up Medical Desision Making - Independent Historian Additional History obtained from: Family - Diagnostic Testing Diagnostic test were ordered, analyzed, and reviewed by me: Yes - Departure Departure Disposition: Home Clinical Impression: UTI (urinary tract infection) Condition: Stable Critical Care Time: No Referrals: MICHAEL GRANT DO [Primary Care Provider] - Follow up/PCP as directed Additional Instructions: Drink plenty of clear liquids before advancing your diet. Take your antibiotic medication and any other medication as prescribed. Use Tylenol and ibuprofen if there are no contraindications for control of pain and fever. Call your primary prescribing provider on 11/01/2023 to make arrangements for a follow-up appointment to be seen in the next 5 to 7 days. Prescriptions: Cephalexin Mh 500 mg [Keflex 500 mg] 500 mg PO TID #21 cap
[2023-10-29 20:30] VITALS: TEMP 99.1
[2023-10-29 21:11] VITALS: RESP 18
[2023-10-29 21:19] LABS: Appearance Cloudy (Clear); Bilirubin Negative (Negative); Blood Negative (Negative); Epithelial Cells Few /HPF (None Seen); Glucose, Urine Negative (Negative); Hyaline Casts NONE SEEN /LPF (0-2); Ketones Trace (Negative); Leukocyte Esterase Trace (Negative); Nitrite Negative (Negative); Protein,Urine Dip Trace (Negative); RBC 0-2 /HPF (0-5); Specific Gravity >=1.030 (1.005-1.030)
[2023-10-29 21:20] LABS: ADD URINE CULTURE? ORDERED SEPARATELY (NO); Bacteria Few /HPF (None Seen)
[2023-10-29] MEDS: KEFLEX 500 MG PO ONE (21:27)
[2023-10-29] MEDS ORDERED: KEFLEX 500 MG ONE (21:27)
[2023-10-29 21:48] VITALS: BP 118/87; PULSE 92; O2SAT 97
== END 2023-10-29 22:03 | disposition home or self-care (01) ==
LOC: ED 19:56
DX: N39.0 Urinary tract infection, site not specified (principal); R30.0 Dysuria; R35.0 Frequency of micturition; R33.9 Retention of urine, unspecified; R56.9 Unspecified convulsions; Z79.899 Other long term (current) drug therapy
CPT/HCPCS: 36000; 81001; 87086; 99284; P9612; A9270-GY